=== PATIENT | female | born 1940 | race Caucasian/White ===

== ENCOUNTER 2017-08-17 08:14 | Observation (INO) | payer MEDICARE, OTHER ==
[~2017-08-17] VITALS: Ht 160 cm; Wt 65.8 kg
[2017-08-17] VITALS (12 sets, daily range): BP systolic 121–194; BP diastolic 31–85
--- NOTE | ~2017-08-17 | H ---
[address] [address] HISTORY AND PHYSICAL Name: HEATHER MALHOTRA Room: [address] Sameer Bains#: [id number] Admission: 08/17/17 Attend Phys: Jermaine Gu MD, Discharge: 08/18/17 Date of : 41 Report #: [id number] THIS REPORT FOR: //name// Please refer to the History and Physical performed in the physician's office. By: 0702Medical Records Staff ARELIS /YULISA
[~2017-08-17 08:14] MED LIST: ALDACTONE25 MG PO; ALLOPURINOL 30300 M1 PO; AMLODIPINE BESYL5 MG PO; ANTACID500 MG PO; ASA5UEC PO; ASPIR 8181 MG PO; ASPIRIN EC81 M1 PO; ASPIRIN325; ASPIRIN325 PO; ASPIRIN81 M2 PO; BIOTIN-D1 GM PO; BIOTIN2500 MCG PO; CALCIUM; CALCIUM-MAG-ZI1 EACH PO; CITRACAL + D C1 EACH; FISH OIL 1,0001 EAC5 PO; FISH OIL 1,0001 EAC7 PO; FUROSEMIDE 40 M40 M1 PO; GLUCOSAMINE HC500 MG PO; GLUCOSAMINE1000 MG PO; IMDUR 30 MG TAB30 M1 PO; IRON159 MG PO; IRON236 MG PO; ISOSORBIDE; ISOSORBIDE MONO60 M1 PO; LASIX 40 MG TAB40 M2 PO; LIPITOR 20 MG T20 M1 PO; LOPRESSOR 50 MG50 M1 PO; LOPRESSOR100 MG PO; LOPRESSOR50 PO; MULTIVITAMINS1 EAC7 PO; NIASPAN 500 MG500 M1 PO; NIASPAN ER 101000 M1 PO; NIASPAN PO; NITROGLYCERIN0.4 MG SL; NITROGLYCERIN0.4 MG SUBLING; OMEPRAZOLE40 MG PO; PLAVIX 75 MG TA75 M1 PO; PLAVIX 75 MG TA75 MG PO; PRILOSEC 20 MG20 MG PO; PROTONIX40 M1 PO; PROTONIX40 M2 PO; RANEXA 500 MG500 M1 PO; RANEXA1000 MG PO; SIMVASTATIN40 MG PO; SYNTHROID50 MCG PO; TOPAMAX 25 MG T25 M1 PO; VITAMIN D1000 UNI1 PO; VITAMIN D2000 UNIT PO; ZETIA10 MG PO
[2017-08-17 09:01] LABS: HEMATOCRIT 36.9 % (37.0-47.0); HEMOGLOBIN 12.8 gm/dL (12.0-15.0); MCH 32.3 pg (26.0-34.0); MCHC 34.8 g/dL (28.0-37.0); MCV 92.8 fL (80.0-100.0); MPV 6.9 fl. (7.2-11.1); RBC 3.97 mil/uL (4.20-5.00); RDW-CV 13.4 % (10.5-14.5)
[2017-08-17 09:09] LABS: ANION GAP 6 mmol/L (7-16); BUN 13 mg/dL (7-18); CALCIUM 9.2 mg/dL (8.5-10.1); CHLORIDE 92 mmol/L (98-107); CO2 33 mmol/L (21-32); CREATININE 1.2 mg/dL (0.6-1.3); GLUCOSE 76 mg/dL (70-99); POTASSIUM 3.8 mmol/L (3.5-5.1); SODIUM 131 mmol/L (136-145)
[2017-08-17 09:10] LABS: APTT 28.2 Seconds (25.0-31.3); INR 1.1; PROTIME 10.3 Seconds (9.20-11.50)
[2017-08-17 09:14] LABS: ALKALINE PHOSPHATASE 91 U/L (46-116); CHOLESTEROL 174 mg/dL (<200); HDL CHOLESTEROL 73 mg/dL (>40); LDL CHOLESTEROL 86 mg/dL (<100); SGOT 34 U/L (15-37); SGPT 29 U/L (30-65); TC:HDL 2.4 Ratio (Not establshd); TOTAL BILIRUBIN 0.9 mg/dL (<0.1-1.0); TOTAL PROTEIN 7.5 g/dL (6.4-8.2); TRIGLYCERIDE 77 mg/dL (<150); VLDL 15 mg/dL (<40)
[2017-08-17] MEDS ORDERED: LOPRESSOR50 PO (09:33)
[2017-08-17] MEDS ORDERED: PROTONIX40 M1 PO (09:36)
[2017-08-17] MEDS ORDERED: ELEMENTAL CALC600 MG PO (09:38)
[2017-08-17] MEDS ORDERED: VITAMIN D3400 UNIT PO (09:39)
[2017-08-17 09:55] LABS: SERUM ASSESSMENT Clear
--- NOTE | 2017-08-17 13:55 | NUR ---
PT ARRIVED ON THE FLOOR FROM EHS SPECIALIST. REPORT TAKEN FROM ELMA EARL. PT ON CARDIAC MONITER TRACING SB HR 56. PT IS A&O WITH NO C/O PAIN. VSS WNL. PT IS AFEBRILE AND ON ROOM AIR. R GROIN DRSG CLEAN DRY AND INTACT. ROSALES HAS CLEAR YELLOW URINE. SISTER AMAURY REYNOSO AT BEDSIDE. BED IN LOW POSITION CALL LIGHT IN REACH. PT RIGHTS AND FALL AGREEMENT SIGNED. PT HAS HAS FLU SHOT IN APR AND REBOOT PNEU IN 2015. WM.
--- NOTE | 2017-08-17 15:10 | CARD ---
[address] [address] CARDIAC CATH REPORT Name: HEATHER MALHOTRA Room: [address] IN [facility]#: [id number] Admission: 08/17/17 Attend Phys: Jermaine Gu MD, Discharge: Date of : 42 Report #: [id number] THIS REPORT FOR: //name// APPROVED REPORT Study performed: 08/17/2017 09:18:48 Patient Details Patient Status: Out-Patient Room #: The patient is a 76 year-old female Event Personnel Jermaine Gu Incising Machine Operator, Lenora Boothe RN RN, Leonardo Hammonds (Graciela) Jason Nuno James Monitor Procedures Performed Left heart catheterization left ventriculography selective coronary angiography and percutaneous coronary intervention with deployment of drug-eluting stent in the mid circumflex Indication Unstable angina , Positive stress test Risk Factors Peripheral Vascular Disease, Hypercholesterolemia, Hypertension Previous Procedures/Diagnoses Previous PCI Admission/Lab Medications/Medications given during procedure Aspirin, Platelet Aff. Inhib., Angiomax bolus and infusion Procedure Narrative The patient was brought electively to the Cardiac Catheterization Laboratory and was prepped and draped in a sterile manner. The right femoral was infiltrated with 1% Lidocaine subcutaneous anesthesia. A Success 6 FR sheath was inserted into the right femoral artery. Coronary angiography was performed using coronary diagnostic catheters. The right coronary system was accessed and visualized with a Diagnostic - JR4 catheter. The left coronary system was accessed and visualized with a Diagnostic - JL3.5 catheter. The left ventricle was accessed and visualized with a Diagnostic - STRAIGHT PIG catheter. Left ventricular/Aortic Valve gradient assessed via catheter pullback. Pre-demployment femoral [place] [address] CARDIAC CATH REPORT Name: HEATHER MALHOTRA Rut Room: [address]#: [id number] Admission: 08/17/17 Attend Phys: Jermaine Gu MD, Discharge: Date of : 41 Report #: [id number] Closure device was deployed with a Fr Angioseal. The patient tolerated the procedure well and there were no complications associated with the procedure. There was no hematoma. Intraoperative Conscious Sedation Sedation start time: 947 Case end Time: 1107 Fentanyl 50 mcg Versed 3 mg Fluoro Time: 26.6 minutes Dose: DAP 513101 cGycm2 1750 mGy Contrast Type and Amount: Visipaque 450 ml Coronary Angiography The patient's coronary anatomy is right dominant. Diagnostic Cath Left Main 0% narrowing LAD 30% proximal and mid LAD narrowings Circumflex 20% proximal with 90% mid vessel stenosis; there was total occlusion of the first marginal branch with left to left collaterals filling the distal marginal branch Right Coronary Widely patent proximal right course it with 40% mid and distal narrowing Left Ventriculography The left ventricle is normal in size with normal contractility. The left ventricular ejection fraction is estimated to be 65%. Left ventricular wall motion abnormalities are not present. There is no mitral insufficiency. Hemodynamics The aortic pressure is 125/37 mmHg with a mean of 67 mmHg. The left ventricular pressure is 126/0 mmHg with a mean of mmHg. The left ventricular end diastolic pressure is 5 mmHg. There was no gradient across the aortic valve upon pullback. PCI Technique Lesion Anticoagulation was achieved with Angiomax. Patient was preloaded with Angiomax IV 10 ml. Percutaneous coronary intervention was performed on the mid circumflex artery segment. The lesion stenosis prior to intervention was 90% with GIFTY 3 flow. A 6FR XB LAD 3.0 100CM Guide Catheter was used to engage the ostium. A IG: ProwaterFlex 180CM Interventional Guidewire was [place] [address] CARDIAC CATH REPORT Name: HEATHER MALHOTRA Room: [address]#: [id number] Admission: 08/17/17 Attend Phys: Jermaine Gu MD, Discharge: Date of : 41 Report #: [id number] BALLOON DILATION A Balloon catheter NC Trek RX 2.25x12 was inserted and inflated up to 12atm for 10seconds. Additional Inflation: 12atm for 7seconds. Additional Inflation: 12atm for 12seconds. Final angiography reveals 0 % stenosis with GIFTY 3 flow. BALLOON DILATION A Balloon catheter was inserted and inflated up to 12.00atm for 17seconds. PCI Technique Lesion 2 Percutaneous Coronary Intervention was performed on the first obtuse marginal branch segment. A IG: ProwaterFlex 180CM Interventional Guidewire was used to cross the lesion. Balloon Dilation A Balloon catheter Mini Trek RX 1.20X12 was inserted and inflated up to 12.00atm for 8seconds. Additional Inflation: 16atm for 19seconds. Final angiography reveals 100 % stenosis with GIFTY 0 flow. Comments Was unable to recanalize the totally occluded first marginal branch but there were prominent left to left collaterals filling the distal marginal branch in retrograde fashion BALLOON DILATION A Balloon catheter NC Trek RX 2.25 X 8 was inserted and inflated up to 18.00atm for 16seconds. Additional Inflation: 20.00atm for 11seconds. STENT DEPLOYMENT A stent Xience Alpine RX 2.25X15 was inserted and inflated up to 10.00atm for 10seconds. Additional Inflation: 11.00atm for 10seconds. Stent Deployment A stent Xience Alpine RX 2.25X08 was inserted and inflated up to 12atm for 9seconds. Additional Inflation: 14atm for 7seconds. Conclusion #1 significant coronary [place] [address] CARDIAC CATH REPORT Name: HEATHER MALHOTRA Room: [address] [place] ..#: [id number] Admission: 08/17/17 Attend Phys: Jermaine Gu MD, Discharge: Date of : 41 Report #: [id number] following: A 30% proximal and mid LAD narrowing B 20% proximal circumflex narrowing with 90% mid vessel narrowing and total occlusion of the first marginal branch C dominant right coronary artery with widely patent proximal stent and 40% mid and distal narrowing #2 normal left ventricular systolic function, estimate ejection fraction being 65% #3 normal left-sided hemodynamics study #4 Successful percutaneous coronary intervention with deployment of drug-eluting stent at site of 90% mid circumflex stenosis with 0% residual and and GIFTY-3 flow the distal vessel. #5 inability to recanalize the chronic total occlusion of the first marginal branch of the circumflex but there were prominent left to left collaterals filling that branch in retrograde fashion Recommendations Daily ASA with Plavix for at least one year Aggressive Medical Therapy Medications Administered Aspirin (any) Clopidogrel <ELECTRONICALLY SIGNED> By: Jermaine Gu MD, [facility] 08/17/171509 09 09Jermaine Gu MD, FAC /INF
--- NOTE | 2017-08-17 16:01 | EKG ---
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: 28 : 1940 Requested By: Jermaine Gu Order Number: [id number] Reading MD: Luigi David Measurements Intervals [place] Rate: 48 P: 71 CT: 160 QRS: -51 QRSD: 132 T: 57 QT: 531 QTc: 475 Interpretive Statements Sinus bradycardia Left bundle branch block Baseline wander in lead(s) V3 Compared to ECG 05/24/2015 10:17:09 Left bundle-branch block now present Intraventricular conduction delay no longer present Electronically Signed On 08-17-2017 16:01:20 CDT by Luigi David [email or web address] <ELECTRONICALLY SIGNED> By: Luigi David MD, [facility] 08/17/17 1601 1147 1147 Luigi David MD, [facility] /EPI
--- NOTE | 2017-08-17 16:01 | EKG ---
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: 28 : 1940 Requested By: Jermaine Gu Order Number: [id number] Reading MD: Luigi David Measurements Intervals [place] Rate: 49 P: 62 [place]: 156 QRS: -45 QRSD: 136 T: 52 QT: 514 QTc: 465 Interpretive Statements Sinus bradycardia Left bundle branch block No previous ECG available for comparison Electronically Signed On 08-17-2017 16:00:56 CDT by Luigi David [email or web address] <ELECTRONICALLY SIGNED> By: Luigi David MD, [facility] 08/17/17 1600 0900 09 Luigi David MD, [facility] /EPI
--- NOTE | 2017-08-17 17:48 | NUR ---
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 SHE IS NOW SITTING UP IN BED. EDUCATION GIVEN ON DEMAND. R GROIN DRSG IS CLEAN DRY AND INTACT, PT HAS HAD NO C/O PAIN OR DISCOMFORT. PTS FAMILY IS TO BRING COPY OF ADVANCE DIRECTIVE. EDUCATION GIVEN ON DEMAND.
[2017-08-18] VITALS: BP 134/54
--- NOTE | 2017-08-18 01:03 | NUR ---
ASSUMED CARE OF PT AT 1900. PT IS ALERT AND ORIENTED. VSS. PERRLA. NO COMPLAINTS OF PAIN. NO SIGNS OR SYMPTOMS OF A HEMATOMA OVER RIGHT GROIN SITE. PT IS IN SINUS RYTHM ON THE TELEMETRY. PT IS RESTING COMFORTABLY IN BED. RESPIRATIONS ARE EVEN AND NONLABORED. WILL CONTINUE TO MONITOR PT.
[2017-08-18 03:54] VITALS: BP 143/43
--- NOTE | 2017-08-18 05:48 | NUR ---
PT REFUSES TO LET LAB GET BLOOD FROM HER
[2017-08-18 07:55] VITALS: BP 119/43
[2017-08-18 08:52] LABS: HEMATOCRIT 36.5 % (37.0-47.0); HEMOGLOBIN 12.6 gm/dL (12.0-15.0); MCH 32.3 pg (26.0-34.0); MCHC 34.6 g/dL (28.0-37.0); MCV 93.5 fL (80.0-100.0); MPV 7.2 fl. (7.2-11.1); RBC 3.91 mil/uL (4.20-5.00); RDW-CV 13.1 % (10.5-14.5); WBC 6.8 thou/uL (4.0-11.0)
[2017-08-18 09:02] LABS: ANION GAP 8 mmol/L (7-16); BUN 8 mg/dL (7-18); CALCIUM 8.7 mg/dL (8.5-10.1); CHLORIDE 100 mmol/L (98-107); CO2 28 mmol/L (21-32); CREATININE 0.9 mg/dL (0.6-1.3); GLUCOSE 87 mg/dL (70-99); POTASSIUM 3.8 mmol/L (3.5-5.1); SODIUM 136 mmol/L (136-145)
[2017-08-18 09:05] LABS: TROPONIN-I LEVEL <0.06 ng/mL (<0.06)
--- NOTE | 2017-08-18 09:12 | NUR ---
ASSUMED CARE OF PT THIS AM AROUND 07- SENIOR SOFTWARE DEVELOPER IN PLACE ORDERED, TRACING SR- PT A&O X4- CONTINET OF BOWEL AND BLADDER- UP AD-LYNDON IN ROOM, STEADY GAIT NOTED- LCTA, RESP EVEN AND UN-LABORED- VSS, O2 SAT 96% ON RA- ABDOMAN SOFT/ROUND/NON-TENDER, BS X4 QUADS- LAST BM REPORTED X2 DAYS AGO- IV NOTED TO RIGHT AC INTACT, IVF INFUSING PRESCIBED- RIGHT GROIN INCISSION C/D/I, SLIGHT BRUISING NOTED WITH BRUISE, NO HEMATOMA NOTED- GOOD PO INTAKE NOTED THIS AM WITH BREAKFAST- PT DENIES ANY C/O PAIN/DISCOMFORT AT THIS TIME- CALL LIGHT AND PERSONAL BELONGINGS WITH IN REACH- HOURLY ROUNDS IN PLACE R/T SAFETY/NEEDS- ALL NEEDS MET AT THIS TIME-WCTM
[2017-08-18 11:01] VITALS: BP 146/62
[2017-08-18 11:14] VITALS: BP 146/62
--- NOTE | 2017-08-18 11:20 | NUR ---
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
--- NOTE | 2017-08-18 16:30 | EKG ---
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: : 1940 Requested By: Jermaine Gu Order Number: [id number] Reading MD: Luigi Davdi Measurements Intervals [place] Rate: 71 P: 56 [place]: 135 QRS: -44 QRSD: 131 T: 67 QT: 455 QTc: 495 Interpretive Statements Sinus rhythm Left bundle branch block Compared to ECG 08/17/2017 11:47:49 Sinus bradycardia no longer present Electronically Signed On 08-18-2017 16:30:09 CDT by Luigi David [email or web address] <ELECTRONICALLY SIGNED> By: Luigi David MD, [facility] 08/18/17 1630 0832 0832 Luigi David MD, [facility] /EPI
--- NOTE | 2017-08-20 15:01 | D ---
[address] [address] DISCHARGE SUMMARY Name: HEATHER MALHOTRA Room: [address] Sameer MPetra#: [id number] Admission: 08/17/17 Attend Phys: Jermaine Gu MD, Discharge: 08/18/17 Date of : 41 Report #: [id number] THIS REPORT FOR: //name// CC: [facility] DATE OF SERVICE: 08/18/2017 FINAL DISCHARGE DIAGNOSES: 1. Coronary artery disease. 2. Status post percutaneous coronary intervention to the circumflex. 3. Status post prior percutaneous coronary interventions, multivessel. 4. Hypertension. 5. Peripheral vascular disease. 6. Hyperlipoproteinemia. PROCEDURES: 08/17/2017 -- left heart catheterization, left ventriculography, selective coronary arteriography and percutaneous coronary intervention with deployment of sequential drug-eluting stents at the site of 90% mid circumflex stenosis. The patient is a very pleasant 76-year-old female with known coronary and peripheral vascular disease. Recently, she has noted recrudescence of chest pain and nuclear stress test revealed inducible lateral ischemia. In this context, elected to proceed with cardiac catheterization on 08/17/2017. That study demonstrated 90% mid circumflex stenosis with total occlusion of the first marginal, [id number] collaterals filling the distal marginal. She had modest LAD and right coronary narrowings. In this context, I proceeded with percutaneous coronary intervention, deploying sequential drug-eluting stents at the site of 90% mid circumflex stenosis with 0% residual narrowing following stent deployment and GIFTY 3 flow of the distal vessel. The patient did well post-procedurally. I briefly attempted to recanalize the chronic total occlusion of the obtuse marginal, but was unable to restore good antegrade flow. There was good [id number] retrograde collateral filling of that distal marginal branch and I did not proceed further with that effort. The patient did well post-procedurally. She denied recurrent chest pain. She ambulated in the hallways without difficulty and there was good hemostasis at the femoral site of catheterization. Laboratory on 08/18/2017 revealed a hemoglobin 12.6; 206,000 platelets. Potassium 3.8, BUN 8, creatinine 0.9. The patient was discharged to [place] [address] DISCHARGE SUMMARY Name: HEATHER MALHOTRA Rut [address] [id number] Admission: 08/17/17 Attend Phys: Jermaine Gu MD, Discharge: 08/18/17 Date of : 41 Report #: [id number] medications: Aspirin 81 mg daily, atorvastatin 20 mg at bedtime, biotin 5000 mcg at bedtime, calcium carbonate 600 mg b.i.d., cholecalciferol 2000 units daily, clopidogrel or Plavix 75 mg daily with 600 mg chiquita-procedural dose, furosemide 40 mg daily, isosorbide mononitrate 30 mg daily, L-thyroxine 50 mcg daily, metoprolol tartrate 50 mg b.i.d., omeprazole 20 mg q.a.m., pantoprazole 40 mg daily, and spironolactone 25 mg daily. I will plan to see the patient in 4-6 weeks in the office. She is discharged to home in stable condition on the aforementioned medications with followup as iterated above. <ELECTRONICALLY SIGNED> By: Jermaine Gu MD, [facility] 08/20/17 1501 0949 [id number] Gu MD, [facility] /nt
== END 2017-08-18 11:58 | disposition home or self-care (01) ==
LOC: M.CL 08:14 → M.2W 11:28 → M.TBA-CV 11:28 → M.2W 11:28
PROVIDERS: ADMIT Internal Medicine
DX: I25.119 Atherosclerotic heart disease of native coronary artery with unspecified angina pectoris (principal); I10 Essential (primary) hypertension; I73.9 Peripheral vascular disease, unspecified; E78.5 Hyperlipidemia, unspecified; Z87.891 Personal history of nicotine dependence; Z98.890 Other specified postprocedural states

== ENCOUNTER 2020-01-23 09:17 | Observation (INO) | payer MEDICARE, OTHER ==
[~2020-01-23] VITALS: Ht 160 cm; Wt 58.5 kg
[2020-01-23] VITALS (10 sets, daily range): BP systolic 107–159; BP diastolic 39–77
--- NOTE | ~2020-01-23 | H ---
[address] [address] HISTORY AND PHYSICAL Name: HEATHER MALHOTRA Room: [address] Sameer Bains#: [id number] Admission: 01/23/20 Attend Phys: Jermaine Gu MD, Discharge: 01/24/20 Date of : 41 Report #: [id number] THIS REPORT FOR: //name// cc: Sabas Jhaveri Theodore M. DO ~ Please refer to the History and Physical performed in the physician's office. By: [facility]3Medical Records Staff [facility] /YULISA
[~2020-01-23 09:17] MED LIST changes: +ALDACTONE50 MG PO; +BIOTIN1000 MCG PO; -BIOTIN2500 MCG PO; +ELEMENTAL CALC600 MG PO; +ISOSORBIDE MONO60 M1; +LIPITOR40 MG; +VITAMIN D3400 UNIT PO; +ZYRTEC10 M4 PO
[2020-01-23 10:04] LABS: HEMATOCRIT 36.2 % (37.0-47.0); HEMOGLOBIN 12.5 gm/dL (12.0-15.0); MCH 33.3 pg (26.0-34.0); MCHC 34.6 g/dL (28.0-37.0); MCV 96.1 fL (80.0-100.0); RBC 3.76 mil/uL (4.20-5.00); WBC 7.7 thou/uL (4.0-11.0)
[2020-01-23] MEDS ORDERED: VITAMIN D3 (10:09)
[2020-01-23 10:10] LABS: APTT 24.5 Seconds (25.0-31.3); PROTIME 10.2 Seconds (9.20-11.50)
[2020-01-23 10:20] LABS: ALBUMIN 3.9 g/dL (3.4-5.0); ALKALINE PHOSPHATASE 90 U/L (46-116); ANION GAP 7 mmol/L (7-16); BUN 11 mg/dL (7-18); CALCIUM 8.7 mg/dL (8.5-10.1); CHLORIDE 97 mmol/L (98-107); CHOLESTEROL 118 mg/dL (<200); CO2 31 mmol/L (21-32); GLUCOSE 80 mg/dL (70-99); HDL CHOLESTEROL 54 mg/dL (>40); LDL CHOLESTEROL 54 mg/dL (<100); NT-PRO BRAIN NAT PEPTIDE 2226 pg/mL (<300); POTASSIUM 3.6 mmol/L (3.5-5.1); SERUM ASSESSMENT Clear; SGOT 39 U/L (15-37); SGPT 28 U/L (30-65); SODIUM 135 mmol/L (136-145); TC:HDL 2.2 Ratio (Not establshd); TOTAL BILIRUBIN 0.7 mg/dL (<0.1-1.0); TOTAL PROTEIN 7.6 g/dL (6.4-8.2); TRIGLYCERIDE 53 mg/dL (<150); VLDL 11 mg/dL (<40)
--- NOTE | 2020-01-23 14:25 | EKG ---
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
--- NOTE | 2020-01-23 15:01 | CARD ---
[address] [address] CARDIAC CATH REPORT Name: HEATHER MALHOTRA Room: [address] M.RTeri#: [id number] Admission: 01/23/20 Attend Phys: Jermaine Gu MD, Discharge: Date of : 42 Report #: [id number] THIS REPORT FOR: //name// cc: Sabas Jhaveri Theodore M. DO ~ APPROVED REPORT Study performed: 01/23/2020 11:45:30 Patient Details Patient Status: Out-Patient Room #: The patient is a 79 year-old female Event Personnel Jermaine Gu Furniture Inspector, Sera Kraus RN RN, Martin Gomez Reeves, Adam RTR Monitor Procedures Performed Left Heart Cath w/or w/o Coronaries [id number] [facility] Place w/wo Plasty Single RCA [id number] Hemostasis w/ Mynx Indication Unstable angina Risk Factors Peripheral Vascular Disease, Hypercholesterolemia, Hypertension Previous Procedures/Diagnoses Previous PCI Admission/Lab Medications/Medications given during procedure Oxygen Nasal cannula 2 l per min, Fentanyl IV 25 mcg, Midazolam (Versed) IV 1 mg, Lidocaine Subcut 20 ml, Angiomax IV 9 ml, Angiomax IV 20.52 ml per hr, Plavix PO 300 mg, Aspirin PO 81 mg Procedure Narrative The patient was brought electively to the Cardiac Catheterization Laboratory and was prepped and draped in a sterile manner. The right femoral was infiltrated with 2% Lidocaine subcutaneous anesthesia. A Fosters 6 FR sheath was inserted into the right femoral artery. Coronary angiography was performed using coronary diagnostic catheters. The right coronary system was accessed and visualized with a JR4 6fr Diagnostic catheter. The left coronary system was accessed and visualized with a JL 3.5 6fr [place] [address] CARDIAC CATH REPORT Name: HEATHER MALHOTRA Rut Room: [address] M.R.#: [id number] Admission: 01/23/20 Attend Phys: Jermaine Gu MD, Discharge: Date of : 41 Report #: [id number] ventricle was accessed and visualized with a Straight Pig 5fr Diagnostic catheter. Left ventricular/Aortic Valve gradient assessed via catheter pullback. Pre-demployment femoral angiogram was performed . Closure device was deployed with a 6 Fr Mynx. The patient tolerated the procedure well and there were no complications associated with the procedure. There was no hematoma. Intraoperative Conscious Sedation Sedation start time: 1219 Case end Time: 1325 Fentanyl 25 mcg Versed 1 mg Fluoro Time: 19.1 minutes Dose: DAP 43094 cGycm2 1209.83 mGy Contrast Type and Amount: Visipaque 210 ml Diagnostic Cath Left Main 10% ostial narrowing LAD Diffuse calcification with 40% mid vessel narrowing Circumflex Prominent though nondominant vessel with 60% mid vessel in-stent restenosis and total occlusion of the prominent first marginal branch with left to left collaterals filling that marginal branch in retrograde fashion Right Coronary Large dominant vessel with 30% proximal narrowing, 95% mid vessel stenosis with severe calcification in that segment and 30% distal narrowing Left Ventriculography Left Ventriculography was not performed. Hemodynamics The aortic pressure is 118/38 mmHg with a mean of 67 mmHg. The left ventricular pressure is 120/4 mmHg with a mean of mmHg. The left ventricular end diastolic pressure is 19 mmHg. There was no gradient across the aortic valve upon pullback. PCI Technique Lesion Anticoagulation was achieved with Angiomax. Percutaneous coronary intervention was performed on the mid right coronary artery. The lesion stenosis prior to intervention was 95% with GIFTY 3 flow. A 6F JR 4.0 Guide Catheter was used to engage the Right ostium. A ProwaterFlex 180CM Interventional Guidewire was used to cross the lesion[place] [address] CARDIAC CATH REPORT Name: HEATHER MALHOTRA Room: [address] M.R.#: [id number] Admission: 01/23/20 Attend Phys: Jermaine Gu MD, Discharge: Date of : 41 Report #: [id number] A Balloon catheter Mini Trek RX 1.2X8 was inserted and inflated up to 18.00atm for 8seconds. Additional Inflation: 18.00atm for 9seconds. Additional Inflation: 20.00atm for 9seconds. A Balloon Cather EA Mini Trek 2.0 X 12 was inserted and inflated up to 16.00 ludin for 10 seconds. Additional Inflation: 20.00 ludin for 12 seconds. Additional Inflation 22.00 ludin for 10 seconds. A Balloon Cather EA Trek 2.5 X 12 was inserted and inflated up to 18.00 ludin for 8 seconds. Additional Inflation: 20.00 ludin for 9 seconds. Additional Inflation: 22.00 ludin for 10 seconds. A Balloon Catheter NC Euphora 2.75 X 12 was inserted and inflated up to 18.00 ludin for 8 seconds. Additional Inflation: 17.00 ludin for 15 seconds. Additional Inflation: 18.00 ludin for 11 seconds. STENT DEPLOYMENT A drug-eluting stent Jean RX Stent 2.5X15mm was inserted and inflated up to 16.00atm for 9seconds. Additional Inflation: 18.00atm for 7seconds. Additional Inflation: 20.00atm for 8seconds. POST STENT DEPLOYMENT BALLOON DILATION A Balloon catheter NC Trek RX 3.0 X 8 was inserted and inflated up to 16.00atm for 8seconds. Additional Inflation: 16.00atm for 7seconds. Final angiography reveals 20 % stenosis with GIFTY 3 flow. COMMENTS PCI was technically complex by virtue of severe diffuse calcification of the right coronary artery, particularly involving the mid segment with severe calcification and eccentric narrowing at that segment. This made wiring of the vessel complex with the use of initial 1.2 x 8 and gradually upsized balloons to generate a satisfactory lumen prior to stenting of that segment. Conclusion 1. Severe multivessel coronary artery disease characterized by the following: A 10% ostial left main coronary narrowing B diffuse calcification of the LAD with 40% mid vessel narrowing C nondominant circumflex with diffuse calcification and 60% mid vessel in-stent restenosis with a total first marginal occlusion and left to left collaterals filling that marginal in retrograde fashion [address] [address] CARDIAC CATH REPORT Name: HEATHER MALHOTRA Room: [address] Sameer Bains#: [id number] Admission: 01/23/20 Attend Phys: Jermaine Gu MD, Discharge: Date of : 41 Report #: [id number] D large dominant right coronary artery with 30% proximal 95% heavily calcified mid vessel and 30% distal stenosis 2. Normal left-sided hemodynamic study 3. Successful PCI with deployment of drug-eluting stent at the site of 95% heavily calcified eccentric mid right coronary stenosis with 20% residual narrowing and GIFTY-3 flow to the distal vessel Recommendations Cardiac Risk Reduction Program Aggressive Medical Therapy Medications Administered Aspirin (any) Clopidogrel Diagnostic Cath Approved by: Jermaine Gu MD Date/Time: 01/23/2020 14:58:31 <ELECTRONICALLY SIGNED> By: Jermaine Gu MD, [facility] 01/23/20 1501 1501 1501Jermaine Gu MD, FAC /INF
--- NOTE | 2020-01-23 16:17 | EKG ---
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
[2020-01-24 04:00] VITALS: BP 124/42
[2020-01-24 04:44] LABS: HEMATOCRIT 31.9 % (37.0-47.0); HEMOGLOBIN 11.2 gm/dL (12.0-15.0); MCH 33.8 pg (26.0-34.0); MCV 96.7 fL (80.0-100.0); MPV 7.2 fl. (7.2-11.1); RBC 3.3 mil/uL (4.20-5.00); RDW-CV 12.8 % (10.5-14.5); WBC 9.5 thou/uL (4.0-11.0)
[2020-01-24 05:25] LABS: ALBUMIN 3.4 g/dL (3.4-5.0); CALCIUM 7.7 mg/dL (8.5-10.1); CREATININE 0.9 mg/dL (0.6-1.3); POTASSIUM 3.8 mmol/L (3.5-5.1); TOTAL BILIRUBIN 0.7 mg/dL (<0.1-1.0); TOTAL PROTEIN 6.6 g/dL (6.4-8.2); TROPONIN-I LEVEL 0.07 ng/mL (<0.06)
[2020-01-24 08:00] VITALS: BP 167/53
--- NOTE | 2020-01-24 10:03 | D ---
[address] [address] DISCHARGE SUMMARY Name: HEATHER MALHOTRA Room: [address] M.R.#: [id number] Admission: 01/23/20 Attend Phys: Jermaine Gu MD, Discharge: Date of : 42 Report #: [id number] THIS REPORT FOR: //name// cc: Sabas Jhaveri Theodore M. DO THIS REPORT FOR: //name// CC: Martir Jhaveri DATE OF SERVICE: 01/24/2020 FINAL DISCHARGE DIAGNOSES: 1. Unstable angina. 2. Coronary artery disease. 3. Status post multiple percutaneous coronary interventions, most recently to the mid right coronary artery on 01/23/2020. 4. Hypertension. 5. Peripheral vascular disease, status post left lower extremity revascularization. 6. Hyperlipidemia. PROCEDURES: 01/23/2020 -- left heart catheterization, selective coronary arteriography, and percutaneous coronary intervention of the mid right coronary artery with deployment of a drug-eluting stent. HISTORY AND HOSPITAL COURSE: The patient is a very pleasant 79-year-old female with complex diffuse atherosclerotic cardiovascular disease. She is status post multiple prior PCIs and percutaneous revascularization of the left lower extremity. Recently, she has noted recrudescence of chest discomfort compatible with her prior angina with a pattern of increasing frequency and severity. As noted above, she has underlying hypertension, hyperlipidemia and peripheral vascular disease. She underwent cardiac catheterization on 01/23/2020, which revealed 40% mid left anterior descending narrowing with diffuse calcification of that system, 60% mid circumflex in-stent restenosis with total occlusion of the first marginal with left to left collaterals filling that marginal in retrograde fashion, and 95% heavily calcified mid right coronary artery stenosis. Given this data, I performed percutaneous coronary intervention, which was complex by virtue of the severe calcification and eccentric lesion in the mid right coronary artery. I dilated with sequential balloons, ultimately placing a 2.5 x 15 Jean drug-eluting stent, post-dilated to 3.0 mm with 10-20% [place] [address] DISCHARGE SUMMARY Name: HEATHER MALHOTRA Rut Room: [address] M.R.#: [id number] Admission: 01/23/20 Attend Phys: Jermaine Gu MD, Discharge: Date of : 42 Report #: [id number] narrowing, and GIFTY 3 flow to the distal vessel. She did well postprocedurally. There was good hemostasis at the right femoral site of catheterization without hematoma. There was good pulse at that site and good flow distally. LABORATORY DATA: Laboratory on 01/23 revealed a sodium 133, potassium 3.8, BUN 8, creatinine 0.9, and glucose 80. Hemoglobin 11.2 and white blood cell count 9500 with 202,000 platelets. DISCHARGE MEDICATIONS: The patient was discharged to home on the following medications: Aspirin 81 mg daily, Plavix 75 mg daily, Lipitor 40 mg daily, metoprolol tartrate 50 mg b.i.d., Imdur 60 mg daily, Lasix 40 mg daily, spironolactone 25 mg daily, and p.r.n. sublingual nitroglycerin. I will plan to see the patient in followup on 02/28/2020 at 10:20 a.m. at [facility]. Therefore, the patient is discharged to home in stable condition on the aforementioned medications with followup as described above. <ELECTRONICALLY SIGNED> By: Jermaine Gu MD, [facility] 01/24/20 1003 0939 [id number] Gu MD, FAC /nt
[2020-01-24 10:15] VITALS: BP 149/49
[2020-01-24 11:45] VITALS: BP 149/49
--- NOTE | 2020-01-24 13:39 | EKG ---
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
== END 2020-01-24 12:23 | disposition home or self-care (01) ==
LOC: M.CL 09:17 → M.TBA-CV 13:45 → M.2W 14:09
PROVIDERS: ADMIT Internal Medicine; ATTEND Internal Medicine
DX: I25.110 Atherosclerotic heart disease of native coronary artery with unstable angina pectoris (principal); I10 Essential (primary) hypertension; E78.5 Hyperlipidemia, unspecified; I73.9 Peripheral vascular disease, unspecified; E78.00 Pure hypercholesterolemia, unspecified; Z79.899 Other long term (current) drug therapy; Z20.828 Contact with and (suspected) exposure to other viral communicable diseases